=== PATIENT | male | born 1950 | race Caucasian/White ===

== ENCOUNTER 2020-01-22 17:26 | Emergency (ER) | payer SELFPAY ==
[~2020-01-22] VITALS: Ht 172.7 cm; Wt 117.9 kg
[2020-01-22 17:30] VITALS: BP_SYST 103
--- NOTE | 2020-01-22 17:30 | NUR ---
Patient to ER bed 01 to gown for evaluation. Side rails up.
--- NOTE | 2020-01-22 17:33 | NUR ---
Dr Richards assessing patient at bedside
--- NOTE | 2020-01-22 17:38 | NUR ---
pt arrives via ACLS d/t uncontrolled bleeding from AV shunt s/p HD. Pt become hypotension SBP 70's. Current bp is 105/53, HR 82. Pt is no longer bleeding from AV shunt. Will continue to monitor
--- NOTE | 2020-01-22 17:40 | NUR ---
# 20 gauge angiocath placed to RFA. Use of asceptic technique. Opsite placed over site. Blood return noted. Blood for lab drawn from site. Flushed with 10 cc of normal saline. No evidence of infiltration noted. Patient tolerated well.
[2020-01-22 17:55] LABS: BASOPHILS # (AUTO) 0.1 K/uL (0.0-0.2); EOSINOPHILS # (AUTO) 0.3 K/uL (0.0-0.4); EOSINOPHILS % (AUTO) 4.2 % (0.0-4.0); HEMOGLOBIN 14.2 g/dL (14.0-18.0); LYMPHOCYTES % (AUTO) 26.6 % (20.5-51.5); MEAN CORPUSCULAR HEMOGLOBIN 28 pg (27-31); MEAN CORPUSCULAR HGB CONC 32 % (32-36); MEAN CORPUSCULAR VOLUME 88 fL (79.0-98.0); MONOCYTES # (AUTO) 0.6 K/uL (0.0-1.0); MONOCYTES % (AUTO) 8.1 % (1.7-9.3); NEUTROPHILS # (AUTO) 4.4 K/uL (1.8-7.7); NEUTROPHILS % (AUTO) 59.1 % (40.0-70.0); PLATELET COUNT (AUTO) 271 K/uL (130-430); RED BLOOD CELL COUNT(AUTO) 5.03 MIL/uL (4.2-6.2); RED CELL DISTRIBUTION WIDTH 18.9 % (9.0-15.0); WHITE BLOOD COUNT (AUTO) 7.5 K/uL (4.8-10.8)
[2020-01-22 18:07] LABS: CALCIUM 9.2 mg/dL (8.4-11.0); CREATININE 4.63 mg/dL (0.55-1.30); POTASSIUM 4.4 mmol/L (3.5-5.1)
[2020-01-22 18:12] LABS: ALBUMIN 3.4 g/dL (3.4-4.8); TOTAL BILIRUBIN 0.4 mg/dL (0.0-1.0)
[2020-01-22 18:45] VITALS: BP_SYST 103
== END 2020-01-22 18:45 | disposition home or self-care (01) ==
LOC: SED 17:26
DX: T82.838A Hemorrhage due to vascular prosthetic devices, implants and grafts, initial encounter (principal); I12.0 Hypertensive chronic kidney disease with stage 5 chronic kidney disease or end stage renal disease; N18.6 End stage renal disease; Z99.2 Dependence on renal dialysis; X58.XXXA Exposure to other specified factors, initial encounter
CPT/HCPCS: 36415; 80053; 85025; 86886; 86900; 86901; 99283

== ENCOUNTER 2023-04-12 11:40 | Emergency (ER) | payer MEDICARE ==
[~2023-04-12] VITALS: Ht 167.6 cm; Wt 99.8 kg
[2023-04-12 11:40] VITALS: BP_SYST 163; PULSE 80; RESP 22; TEMP 98.3; O2SAT 96
[~2023-04-12 11:40] MED LIST: TRAM50TA2 PO
[2023-04-12] MEDS ORDERED: DEXTROSE 50% JECT 50 ML DISP.SYRIN ONE (11:46)
[2023-04-12] MEDS ORDERED: ONDANSETRON HCL 4 MG/2 ML VIAL ONE (11:47)
[2023-04-12] MEDS ORDERED: DEXTROSE 50% JECT 50 ML DISP.SYRIN IVP ONE (12:00)
[2023-04-12] MEDS ORDERED: METOCLOPRAMIDE HCL 10 MG/2 ML VIAL IVP ONE (12:15)
[2023-04-12 12:24] LABS: BASOPHILS % (AUTO) 0.3 % (0.0-2.0); EOSINOPHILS % (AUTO) 0.1 % (0.0-4.0); HEMATOCRIT 50.7 % (36-54); LYMPHOCYTES # (AUTO) 1.2 K/uL (1.0-5.5); LYMPHOCYTES % (AUTO) 11.5 % (20.5-51.5); MEAN CORPUSCULAR HEMOGLOBIN 31 pg (27-31); MEAN CORPUSCULAR HGB CONC 34 % (32-36); MEAN CORPUSCULAR VOLUME 92 fL (79.0-98.0); MONOCYTES # (AUTO) 0.3 K/uL (0.0-1.0); NEUTROPHILS # (AUTO) 8.6 K/uL (1.8-7.7); NEUTROPHILS % (AUTO) 85.1 % (40.0-70.0); PLATELET COUNT (AUTO) 229 K/uL (130-430); RED BLOOD CELL COUNT(AUTO) 5.49 MIL/uL (4.2-6.2); RED CELL DISTRIBUTION WIDTH 15.7 % (9.0-15.0); WHITE BLOOD COUNT (AUTO) 10.1 K/uL (4.8-10.8)
[2023-04-12 12:48] LABS: ANION GAP 8 (5-15); CALCIUM 9.9 mg/dL (8.4-11.0); CARBON DIOXIDE 30 mmol/L (23-29); CHLORIDE 94 mmol/L (98-107); CREATININE 4.72 mg/dL (0.55-1.30); GLUCOSE 131 mg/dL (74-106); POTASSIUM 3.4 mmol/L (3.5-5.1); SODIUM SERUM 132 mmol/L (136-145); UREA NITROGEN, BLOOD 14 mg/dL (8-21)
[2023-04-12 12:53] LABS: ALANINE AMINOTRANSFERASE 22 U/L (12-78); ALBUMIN 3.3 g/dL (3.4-4.8); ASPARTATE AMINOTRANSFERASE 20 U/L (10-37); CREATINE KINASE, TOTAL 41 U/L (39-308); TOTAL BILIRUBIN 0.7 mg/dL (0.0-1.0); TOTAL PROTEIN, SERUM 8.7 g/dL (6.4-8.3)
[2023-04-12] MEDS ORDERED: LEVO5DRO6 EACH EYE (12:58)
[2023-04-12] MEDS ORDERED: PANT20TA16 PO (12:58)
[2023-04-12] MEDS ORDERED: APIX5TAB PO (12:58)
[2023-04-12] MEDS ORDERED: ATOR-1 PO (12:58)
[2023-04-12] MEDS ORDERED: LANT10005 PO (13:14)
[2023-04-12] MEDS ORDERED: INSU100V7 SUBCUT (13:14)
[2023-04-12] MEDS ORDERED: SEVE800T8 PO (13:14)
[2023-04-12] MEDS ORDERED: MIDO5TAB4 PO (13:14)
[2023-04-12] MEDS ORDERED: ERGO1250 PO (13:14)
[2023-04-12] MEDS ORDERED: ONDANSETRON HCL 4 MG/2 ML VIAL IVP ONE (15:00)
[2023-04-12] MEDS ORDERED: CEPH-548 PO (18:08)
[2023-04-12] MEDS ORDERED: ONDA-8 TL (18:08)
[2023-04-12 18:51] VITALS: BP_SYST 139; PULSE 80; RESP 18; TEMP 97.2; O2SAT 98
== END 2023-04-12 18:51 | disposition home or self-care (01) ==
LOC: SED 11:40
DX: L03.311 Cellulitis of abdominal wall (principal); R11.2 Nausea with vomiting, unspecified; E16.2 Hypoglycemia, unspecified; I12.0 Hypertensive chronic kidney disease with stage 5 chronic kidney disease or end stage renal disease; N18.6 End stage renal disease; Z79.4 Long term (current) use of insulin; Z79.899 Other long term (current) drug therapy
CPT/HCPCS: 99285; 70450; 96374; 71045; 96375; 80053; 82550; 85025; 84484; 36415; 93005; 76376; 74176; 82962; J2765; J2405